=== PATIENT | male | born 1995 | race Caucasian/White ===

== ENCOUNTER → 2020-09-16 12:04 | Outpatient (BNVA) | payer OTHER, SELFPAY | PROVIDERS: Visit Provider Nurse Practitioner Family | DX: Z20.828 Contact with and (suspected) exposure to other viral communicable diseases (principal) | CPT/HCPCS: 87635 ==

== ENCOUNTER 2023-05-20 13:21 | Emergency (ER) | payer OTHER, SELFPAY ==
[2023-05-20 13:34] VITALS: BP 132/89; PULSE 97; RESP 16; TEMP 36.7; O2SAT 99; BMI 23.3
--- NOTE | 2023-05-20 14:10 | W.ED.DENTAL ---
HPI - Dental/Oral General: Chief complaint: Dental/Oral Stated complaint: mouth and head pain Time Seen by Provider: 05/20/23 13:37 History of Present Illness: Almas is a 27-year-old male that presents with dental pain. Patient has a 10-year history of poor dentition. Does not see a dentist. He has developed multiple fractured teeth due to decay, multiple dental caries, and has 2 abscess in the upper anterior teeth. Patient also has discoloration and malodorous breath Patient is a type I diabetic?does not take insulin He also has a history of anxiety and depression and does not take anything for that. Patient denies any suicidal or homicidal thoughts Associated symptoms: Denies ear or mastoid pain, fever(s) or odynophagia Review of Systems General: Reports: 10 or more systems reviewed and unremarkable except in HPI and below Const: Denies: fever(s), chills, change in appetite, change in weight, fatigue or malaise Eyes: Denies: change in vision, eye discomfort, eye discharge or eye redness ENMT: Denies: throat pain, enlarged tonsils, odynophagia, hoarseness, ear or mastoid pain, ear discharge, change in hearing, tinnitus, nasal discharge, nasal congestion, post nasal drip or sinus pain Card: Denies: chest pain, palpitations, irregular heart rhythm, edema, dyspnea on exertion, orthopnea or leg pain with exertion Resp: Denies: dyspnea, productive cough, non-productive cough, wheezing, stridor or chest congestion GI: Denies: abdominal pain, nausea, vomiting, dysphagia, diarrhea, constipation, bloating, GI cramping or hematochezia : Denies: flank pain, dysuria, urinary frequency, urinary urgency, urinary hesitancy, oliguria or hematuria Musc: Denies: neck pain, back pain, extremity pain, joint pain, joint swelling, joint redness, joint warmth or muscle weakness Skin/Breast: Denies: rash, pruritus, erythema, photosensitivity or new lesions Neuro: Denies: headache(s), numbness in extremities, weakness in extremities, sensory changes, lack of coordination, difficulty walking, frequent falls, dizziness, confusion, Slurred speech present, difficulty communicating thoughts, seizure-like activity or involuntary movements Endo: Denies: polyuria, polydipsia or tired all the time Humberto/Lymph: Denies: easy bruising or easy bleeding [facility] ED PFS: Medical History (Updated 05/20/23 @ 14:15 by ALINA Jiménez) Diabetes type 1, controlled Physical Exam Const: COMMON NORMALS: no acute distress, patient oriented x3 and alert GENERAL APPEARANCE: cooperative ORIENTATION/CONSCIOUSNESS: Yes awake, Yes oriented to person, Yes oriented to place and Yes oriented to time HENMT: COMMON NORMALS: normocephalic and atraumatic HEAD & SCALP: normocephalic and atraumatic FACE & SINUS: normal facial exam MOUTH: Normal oral and palatal mucosa present THROAT: posterior oropharynx normal Eye: COMMON NORMALS: Equal, round and reactive pupils present, EOMs intact bilaterally, conjunctivae normal and no scleral icterus GENERAL EYE: appearance normal, both eyes and all related structures ALIGNMENT: Yes alignment normal PERIORBITAL: periorbital findings normal CONJUNCTIVA: Yes conjunctivae normal PUPIL: Yes Equal, round and reactive pupils present Neck/C-Spine: COMMON NORMALS: full ROM GENERAL: Yes normal visual inspection Lymph: LYMPHATIC: no lymphadenopathy noted Chest: COMMONS NORMALS: normal inspection of the chest Breast/axilla inspection: Yes no chest deformity, asymmetry, normal contours, no nodules, masses, tenderness Resp: COMMON NORMALS: normal respiratory effort, No retractions and No use of accessory muscles EFFORT & INSPECTION: Yes able to speak in complete sentences and Yes symmetric chest movement Cardio: COMMON NORMALS: regular rate and Peripheral pulses 2+ throughout RATE: regular rate PERIPHERAL PULSES: Peripheral pulses 2+ throughout GI: COMMON NORMALS: Normal to inspection, nondistended, normoactive bowel sounds present, Soft to palpation and non-tender INSPECTION: Yes normal to inspection PALPATION: Yes Soft to palpation RECTAL EXAM: Yes deferred Extremity: COMMON NORMALS: normal to inspection GENERAL: Yes normal exam except as noted Neuro: COMMON NORMALS: patient oriented x3 SENSORIUM/ORIENTATION: Yes alert, Yes oriented to person, Yes oriented to place and Yes oriented to time CRANIAL NERVES: Yes CN normal except as noted Psych: COMMON NORMALS: mental status grossly normal, Normal thought process present, cooperative, activity/motor behavior normal, denies homicidal ideation and denies suicidal ideation THOUGHT PROCESS: Normal thought process present Skin: COMMON NORMALS: no rashes or lesions noted, no wounds and turgor normal GENERAL SKIN EXAM: no rashes or lesions noted and turgor normal Course Vital Signs: Vital signs: Vital Signs Temperature 98.0 F 05/20/23 13:34 Pulse Rate 97 05/20/23 13:34 Respiratory Rate 16 05/20/23 13:34 Blood Pressure 132/89 05/20/23 13:34 Pulse Oximetry 99 05/20/23 13:34 Oxygen Delivery Me thod Room Air 05/20/23 13:34 MDM - Dental/Oral Medical Decision Making Patient was evaluated in the emergency department due to dental pain. Differential diagnosis includes dental fractures, dental caries, dental abscess Patient does have evidence of 2 abscess located in the upper anterior mouth. Multiple fractured teeth, different stages of decay throughout the mouth Patient also has evidence of necrotizing gingival stomatitis Patient was treated here in the emergency department with Augmentin and discharged home on a prescription Subsequent to me going home with chlorhexidine mouthwash Patient does not have primary care nor dental care services established. Can have case management assist with setting patient up with primary care and endocrinology as well as dental services No radiology studies performed this visit Discharge Plan Discharge Patient Disposition: Home Clinical Impression: Dental caries, Gingival abscess, Dental abscess, Fracture of tooth Condition: Stable Prescriptions: New amoxicillin-pot clavulanate 875-125 mg tablet 1 tab PO Q12H 10 Days Qty: 20 0RF chlorhexidine gluconate [Peridex] 0.12 % mouthwash 15 ml buccal BID Qty: 118 0RF No Action sulfamethoxazole-trimethoprim [Bactrim DS] 800-160 mg tablet 1 tab PO BID 10 Days Qty: 20 0RF Discharge Orders: Discharge ED (Routine); Ordered 05/20/23 Ordered By: Radha Hernandez Discharge Diet: Advance as tolerated Discharge Activity: Resume usual activity Patient Instructions: Dental Caries (Cavities), Dental Abscess (ED), Pain Management Coding Level of Care Code ED Personal Caregiver for Neville Olguin
[2023-05-20] MEDS: amoxicillin-clav 875-125 mg Tablet 1 TAB PO (14:33)
[2023-05-20 14:36] VITALS: PULSE 98; RESP 16; O2SAT 99
--- NOTE | 2023-05-21 08:31 | PC.SOCIAL ---
Endocrinology Referral Referral message sent to clinic at this time. Clinic to contact patient with appt date/time. Called patient and he would like PCP referral somewhere close to [place]. Spoke with Justina at [facility]; they are able to set patient up with KYLE Delarosa as early as tomorrow. She will contact patient to arrange appt.
== END 2023-05-20 14:37 | disposition home or self-care (01) ==
PROVIDERS: Emergency Provider Nurse Practitioner
DX: K02.9 Dental caries, unspecified (principal); K05.20 Aggressive periodontitis, unspecified; K04.7 Periapical abscess without sinus; M84.48XA Pathological fracture, other site, initial encounter for fracture; E10.9 Type 1 diabetes mellitus without complications
CPT/HCPCS: 99283

== ENCOUNTER → 2023-05-22 13:34 | Outpatient (BNVA) | payer OTHER, SELFPAY | PROVIDERS: PCP Nurse Practitioner; Visit Provider Nurse Practitioner | DX: E10.9 Type 1 diabetes mellitus without complications (principal) | CPT/HCPCS: 80053; 80061; 83036; 84443; 85025 ==

== ENCOUNTER 2023-10-14 03:30 | Emergency (ER) | payer SELFPAY ==
[2023-10-14 03:34] VITALS: BP 147/117; PULSE 115; RESP 17; TEMP 36.8; O2SAT 97; BMI 21.6
[2023-10-14] MEDS: dexamethasone 10 mg/mL INJ 6 MG PO (04:02)
[2023-10-14] MEDS: cephALEXin 500 mg Capsule 1000 MG PO (04:02)
[2023-10-14 04:14] VITALS: BP 145/89; PULSE 110; RESP 16; O2SAT 100
--- NOTE | 2023-10-14 04:57 | W.ED.DENTAL ---
HPI - Dental/Oral General: Chief complaint: Dental/Oral Stated complaint: Swollen face Time Seen by Provider: 10/14/23 03:33 History of Present Illness: 28-year-old male with a history of very poor dentition. He is also an untreated diabetic. He presents with swelling to the right infraorbital area. He noticed the swelling about an hour prior to arrival this morning. He is having mild pain in the area. He has had these problems before related to dental abscesses. Associated symptoms: Denies fever(s) Review of Systems Const: Denies: fever(s) or chills ENMT: Denies: throat pain Card: Denies: chest pain Resp: Denies: dyspnea GI: Denies: vomiting Musc: Denies: neck pain or back pain Skin/Breast: Reports: skin swelling [facility] ED PFSH: Medical History Diabetes type 1, controlled Family History Mother Diabetes Father Diabetes Type 2 Hypertension Denies family history of Clotting disorder Chronic kidney disease (CKD) Bleeding disorder Cancer Thyroid disease Stroke Social History Smoking and tobacco/nicotine status: current every day tobacco/nicotine user pipe Substance/Drug Use: former Date of last use: 2020 Household members: family Physical Exam Const: COMMON NORMALS: no acute distress GENERAL APPEARANCE: cooperative; not ill appearing HENMT: COMMON NORMALS: normocephalic, atraumatic and external ears normal HEAD & SCALP: normocephalic and atraumatic FACE & SINUS: sinus tenderness, erythema and edema (Right infraorbital) NOSE: Normal nares present EXTERNAL EAR: Yes external ears normal MOUTH: Normal oral and palatal mucosa present and tongue normal TEETH & GINGIVA: Yes abnormal tooth and associated gingiva (Right maxillary gingival abscess) and Yes poor dentition Eye: COMMON NORMALS: Equal, round and reactive pupils present and EOMs intact bilaterally PUPIL: Yes Equal, round and reactive pupils present Chest: CHEST: Yes Symmetrical chest wall rise Resp: COMMON NORMALS: normal respiratory effort, No use of accessory muscles and clear to auscultation bilaterally AUSCULTATION: clear to auscultation bilaterally Cardio: COMMON NORMALS: regular rhythm RHYTHM: regular rhythm Course Vital Signs: Vital signs: Vital Signs Temperature 98.2 F 10/14/23 03:34 Pulse Rate 110 H 10/14/23 04:14 Respiratory Rate 16 10/14/23 04:14 Blood Pressure 145/89 10/14/23 04:14 Pulse Oximetry 100 10/14/23 04:14 Oxygen Delivery Me thod Room Air 10/14/23 03:34 MDM - Dental/Oral Medical Decision Making Infraorbital swelling on the right. Gingival abscess present. 1 small dose of steroid. We will not continue given history of untreated diabetes. Antibiotics. Close outpatient follow-up with a dentist. Return for worsening symptoms despite treatment. No radiology studies performed this visit Discharge Plan Discharge Patient Disposition: Home Clinical Impression: Gingival abscess Condition: Stable Prescriptions: New cephalexin 500 mg capsule 500 mg PO Q6H 10 Days Qty: 40 0RF No Action (DME) Accu-Chek Guide test strips Strip See Rx Instructions .Route Qty: 100 0RF Rx Instructions: As directed (DME) lancets [Accu-Chek Softclix Lancets] Misc See Rx Instructions .Route Qty: 100 0RF Rx Instructions: As directed (DME) blood-glucose meter [Blood Glucose Monitoring] Kit See Rx Instructions .Route Qty: 1 0RF Rx Instructions: As directed hydroxyzine HCl 10 mg tablet 10 mg PO TID PRN (Reason: anxiety) Qty: 30 0RF Peridex 0.12 % mouthwash 15 ml buccal BID Qty: 118 0RF Discharge Orders: Discharge ED (Routine); Ordered 10/14/23 Ordered By: Joe Grider Referrals: Miriam Oro FNP [Primary Care Provider] - Patient Instructions: Dental Abscess (ED), Opioid Safety, Pain Management Activity Restrictions/Additional Instructions: Return for worsening swelling despite treatment, fever despite 3-4 doses of antibiotics, other concerning symptoms. See a dentist this coming week. Medication as directed. Coding Level of Care Code ED Order Dispatcher for Neville Olguin
== END 2023-10-14 04:12 | disposition home or self-care (01) ==
PROVIDERS: Emergency Provider Emergency Medicine; PCP Nurse Practitioner
DX: K05.20 Aggressive periodontitis, unspecified (principal); F17.290 Nicotine dependence, other tobacco product, uncomplicated; E10.9 Type 1 diabetes mellitus without complications
CPT/HCPCS: 99283; J1100

== ENCOUNTER 2023-10-15 13:08 | Emergency (ER) | payer SELFPAY ==
[2023-10-15 13:17] VITALS: BP 156/115; PULSE 117; RESP 16; TEMP 36.9; O2SAT 97; BMI 21.2
--- NOTE | 2023-10-15 13:30 | ED_ITS ---
HPI - Dental/Oral 2 General: Chief complaint: Dental/Oral Stated complaint: right side face swelling and pain Time Seen by Provider: 10/15/23 13:18 Source: patient Mode of arrival: ambulatory Limitations: no limitations History of Present Illness: Patient is a 28-year-old male who presents to ED today with a complaint of swelling to the right side of his face as well as dental pain. Patient states symptoms started approximately 2 days ago. He was seen here in our emergency department and placed on Keflex. He states he has had a total of 3 doses of this medication. He feels like swelling got a little bit better yesterday but woke up this morning and felt like it was a little bit worse thus prompting his ED evaluation. He is not running fevers. He is eating and drinking normally. He has no complaints of a headache or neurologic deficits. MD Complaint: tooth pain Teeth map: 1. every tooth in his mouth has significant dental decay Onset (ago): day(s) Duration: constant Severity: moderate Relieving factors: nothing Exacerbating factors: nothing Context: history of dental caries and poor dental care Associated symptoms: Denies ear or mastoid pain, fever(s) or odynophagia Treatment prior to arrival: other (antibiotics ) Review of Systems 2 Const: Denies: fever(s), chills, body aches, fatigue or malaise ENMT: Reports: dental pain; Denies: throat pain, odynophagia, hoarseness, swelling of lips/tongue, ear or mastoid pain, ear discharge, change in hearing, disequilibrium, nasal discharge, nasal congestion or sinus pain Card: Denies: chest pain Resp: Denies: dyspnea GI: Denies: abdominal pain, nausea, vomiting or diarrhea Musc: Denies: neck pain, back pain, extremity pain or joint pain Skin/Breast: Denies: rash Neuro: Denies: headache(s) or dizziness PFS ED 2 PFSH: Medical History Diabetes type 1, controlled Family History Mother Diabetes Father Diabetes Type 2 Hypertension Denies family history of Clotting disorder Chronic kidney disease (CKD) Bleeding disorder Cancer Thyroid disease Stroke Social History Smoking and tobacco/nicotine status: current every day tobacco/nicotine user pipe Substance/Drug Use: former Date of last use: 2020 Household members: family Physical Exam 2 Const: COMMON NORMALS: no acute distress, patient oriented x3, no limitations, alert and well nourished ORIENTATION/CONSCIOUSNESS: Yes awake, Yes oriented to person, Yes oriented to place and Yes oriented to time HENMT: COMMON NORMALS: Normal external nose present FACE & SINUS: face symmetric FACE & SINUS IMAGES: 1. mild swelling NOSE: Normal external nose present TEETH & GINGIVA: Yes caries and Yes other (significant widespread dental decay) Neck/C-Spine: COMMON NORMALS: no lymphadenopathy GENERAL: No anterior neck swelling and No submandibular swelling Resp: COMMON NORMALS: normal respiratory effort and clear to auscultation bilaterally AUSCULTATION: clear to auscultation bilaterally Cardio: COMMON NORMALS: regular rhythm RATE: tachycardic RHYTHM: regular rhythm Extremity: GENERAL: Yes normal exam except as noted Neuro: NED COMA SCALE: document GCS findings Independence coma scale eye opening: Spontaneous Independence coma scale verbal response: Orientated Independence coma scale motor response: Obey commands Ned coma scale total score: 15 COMMON NORMALS: patient oriented x3 and CN's II-XII intact bilaterally S ENSORIUM/ORIENTATION: Yes alert, Yes oriented to person, Yes oriented to place and Yes oriented to time Course 2 Vital Signs: Vital signs: Vital Signs Temperature 98.5 F 10/15/23 13:17 Pulse Rate 117 H 10/15/23 13:17 Respiratory Rate 16 10/15/23 13:17 Blood Pressure 156/115 10/15/23 13:17 Pulse Oximetry 97 10/15/23 13:17 Oxygen Delivery Me thod Room Air 10/15/23 13:17 MDM - Dental/Oral Medical Decision Making Patient here for complaints of a dental infection. He was seen here 2 days ago. He states yesterday he felt like he was improving yesterday but today feels like he is back to when he was initially seen here in the ED. He has had 3 doses of his Keflex. At this time patient has been on antibiotic therapy less than 24 hours. Recommend he continue his current antibiotics. He was given IM penicillin G and Flagyl here for oral coverage. Recommend prompt follow-up with a dentist. There does not appear to be anything drainable on today's visit. No radiology studies performed this visit Discharge Plan Discharge Patient Disposition: Home Clinical Impression: Toothache, Dental caries, Dental abscess Condition: Stable Prescriptions: No Action (DME) Accu-Chek Guide test strips Strip See Rx Instructions .Route Qty: 100 0RF Rx Instructions: As directed (DME) lancets [Accu-Chek Softclix Lancets] Misc See Rx Instructions .Route Qty: 100 0RF Rx Instructions: As directed (DME) blood-glucose meter [Blood Glucose Monitoring] Kit See Rx Instructions .Route Qty: 1 0RF Rx Instructions: As directed hydroxyzine HCl 10 mg tablet 10 mg PO TID PRN (Reason: anxiety) Qty: 30 0RF Peridex 0.12 % mouthwash 15 ml buccal BID Qty: 118 0RF cephalexin 500 mg capsule 500 mg PO Q6H 10 Days Qty: 40 0RF Discharge Orders: Discharge ED (Routine); Ordered 10/15/23 Ordered By: Johanna Salmeron Referrals: Miriam Oro FNP [Primary Care Provider] - Patient Instructions: Dental Caries (Cavities), Toothache (ED), Dental Abscess Activity Restrictions/Additional Instructions: As we discussed you need to follow-up with a dentist to soon as possible. We discussed potential options and clinics regarding this. You need to return to the emergency department for worsening visual pain, swelling, redness, fevers, severe headache, facial paralysis, or any other concerns you may have. You were given IM antibiotics today. Please continue your current prescription. You also need to speak to a primary care in regards to your diabetes diagnosis so you can start medications if indicated and get prescriptions for diabetic testing supplies. Coding Level of Care Code ED Actuarial Trainee for Neville Olguin
[2023-10-15] MEDS: metroNIDAZOLE 500 MG Tablet PO (13:50)
[2023-10-15] MEDS: penicillin g (L-A) 1,200,000 unit/2 mL Syr 1200000 UNIT IM (13:50)
== END 2023-10-15 13:58 | disposition home or self-care (01) ==
PROVIDERS: Emergency Provider Physician Assistant; PCP Nurse Practitioner
DX: K02.9 Dental caries, unspecified (principal); K04.7 Periapical abscess without sinus; F17.290 Nicotine dependence, other tobacco product, uncomplicated; E10.9 Type 1 diabetes mellitus without complications
CPT/HCPCS: 96372; 99284; J0561

== ENCOUNTER 2025-08-17 13:04 | Inpatient (IN) | payer MEDICAID, SELFPAY ==
[2025-08-17 13:06] VITALS: BP 101/66; PULSE 90; RESP 16; TEMP 36.5; O2SAT 98; BMI 21.4
--- NOTE | 2025-08-17 13:20 | W.ED.PSYCHS ---
HPI - Psych General: Chief Complaint: Psychiatric Symptoms Stated Complaint: SI Time Seen by Provider: 08/17/25 13:05 Source: patient Limitations: no limitations History of Present Illness: 21-year-old male states he does have a history of psychiatric issues depression the past states he supposed be on meds but is not currently on any meds and does not have a psychiatrist currently. States he been having increasing suicidal thoughts over the last month. Denies any specific plan. He denies any worse improved factors Associated symptoms: Reports suicidal ideation Related Data Home Medications ?Medication ?Instructions ?Recorded ?Confirmed aripiprazole 5 mg tablet 5 mg PO QAM 08/17/25 08/17/25 atomoxetine 25 mg capsule 25 mg PO QAM 08/17/25 08/17/25 buspirone 10 mg tablet 10 mg PO BID 08/17/25 08/17/25 glucagon 3 mg/actuation nasal See Rx Instructions .Route .COMPLEX 08/17/25 08/17/25 spray (Baqsimi) insulin glargine 100 unit/mL (3 See Rx Instructions .Route .COMPLEX 08/17/25 08/17/25 mL) subcutaneous pen (Lantus Solostar U-100 Insulin) insulin lispro 100 unit/mL See Rx Instructions .Route .COMPLEX 08/17/25 08/17/25 subcutaneous pen mirtazapine 15 mg tablet 15 mg PO BEDTIME 08/17/25 08/17/25 Previous Rx's ?Medication ?Instructions ?Recorded blood sugar diagnostic (Accu-Chek #100 ea 05/22/23 Guide test strips) blood-glucose meter (Blood Glucose #1 ea 05/22/23 Monitoring kit) lancets (Accu-Chek Softclix #100 ea 05/22/23 Lancets) Allergies Allergy/AdvReac Type Severity Reaction Status Date / Time mushroom Allergy ALGY-Anaphy Verified 10/15/23 13:14 laxis Review of Systems Psych: Reports: suicidal ideation PFSH ED PFSH: Medical History Diabetes type 1, controlled Family History Mother Diabetes Father Diabetes Type 2 Hypertension Denies family history of Clotting disorder Chronic kidney disease (CKD) Bleeding disorder Cancer Thyroid disease Stroke Social History Smoking and tobacco/nicotine status: current every day tobacco/nicotine user pipe Substance/Drug Use: former Date of last use: 2020 Household members: family Physical Exam Const: COMMON NORMALS: no acute distress, patient oriented x3 and healthy appearing HENMT: COMMON NORMALS: normocephalic and atraumatic HEAD & SCALP: normocephalic and atraumatic Eye: COMMON NORMALS: conjunctivae normal CONJUNCTIVA: Yes conjunctivae normal Neck/C-Spine: COMMON NORMALS: full ROM and supple Chest: COMMONS NORMALS: normal inspection of the chest Resp: COMMON NORMALS: normal respiratory effort Cardio: COMMON NORMALS: regular rate, regular rhythm and No murmurs present (Cardio) RATE: regular rate RHYTHM: regular rhythm Extremity: COMMON NORMALS: normal to inspection and full ROM Neuro: COMMON NORMALS: patient oriented x3, moves all extremities and no focal motor deficits Psych: COMMON NORMALS: mental status grossly normal, Normal thought process present and cooperative MOOD & AFFECT: Yes depressed mood THOUGHT PROCESS: Normal thought process present THOUGHT CONTENT: Yes Suicidality present Skin: COMMON NORMALS: no rashes or lesions noted and no wounds GENERAL SKIN EXAM: no rashes or lesions noted Course Vital Signs: Vital signs: Vital Signs Temperature 97.7 F 08/17/25 13:06 Pulse Rate 90 08/17/25 13:06 Respiratory Rate 16 08/17/25 13:06 Blood Pressure 101/66 08/17/25 13:06 Pulse Oximetry 98 08/17/25 13:06 Oxygen Delivery Me thod Room Air 08/17/25 13:06 [facility] - Psych Medical Decision Making Patient presents here with suicidal ideations he is placed on a 96-hour hold is a type I diabetic blood sugar was originally in the 470s labs showed no signs of DKA Sugar here is improved to 200s I did speak to psychiatrist Dr. Kimball will admit to the psych jennings did speak to hospitalist Dr. Gipson who is consulted on case for diabetes management. Medical Records I reviewed the patient's medical records. Lab Data I reviewed the patient's lab results. 08/17/25 13:30 08/17/25 13:30 Laboratory Results WBC 8.15 10^3/uL (3.29-11.43) 08/17/25 13:30 RBC 4.85 10^6/uL (3.85-5.65) 08/17/25 13:30 Hgb 14.70 g/dL (11.27-16.99) 08/17/25 13:30 Hct 41.5 % (37-53) 08/17/25 13:30 MCV 85.6 fl (82-101) 08/17/25 13:30 MCH 30.3 pg (27-33) 08/17/25 13:30 MCHC 35.4 g/dL (30-55) 08/17/25 13:30 RDW 11.8 % (12.1-15.1) L 08/17/25 13:30 Plt Count 236 10^3/cmm (157-399) 08/17/25 13:30 MPV 9.8 fL (7.4-10.4) 08/17/25 13:30 Neut % (Auto) 78.7 % 08/17/25 13:30 Lymph % (Auto) 15.6 % 08/17/25 13:30 [place] % (Auto) 4.3 % 08/17/25 13:30 Eos % (Auto) 1.0 % 08/17/25 13:30 Baso % (Auto) 0.2 % 08/17/25 13: Neut # (Auto) 6.41 10^3/uL (1.8-7.7) 08/17/25 13:30 Lymph # (Auto) 1.3 10^3/uL (0.8-4.8) 08/17/25 13:30 [place] # (Auto) 0.4 10^3/uL (0.2-0.9) 08/17/25 13:30 Eos # (Auto) 0.1 10^3/uL (0.0-0.8) 08/17/25 13:30 Baso # (Auto) 0.0 10^3/uL (0.0-0.1) 08/17/25 13:30 Nucleated RBC % (auto) 0 % 08/17/25 13: Nucleated RBCs # 0.0 /100WBC 08/17/25 13:30 Specimen Type Arterial 08/17/25 13:50 Sample Site Radial, left 08/17/25 13:50 ABG pH 7.42 (7.35-7.45) 08/17/25 13:50 ABG pCO2 38.7 mmHg (35-45) 08/17/25 13:50 ABG pO2 108.0 mmHg (80.0-100.0) H 08/17/25 13:50 ABG PO2/FiO2 Ratio 514 08/17/25 13:50 ABG HCO3 25.2 mmol/L (22-26) 08/17/25 13:50 ABG Base Excess 0.8 mmol/L (-2.0-2.0) 08/17/25 13:50 Oniel Test Pos 08/17/25 13:50 Hematocrit 47.2 % (42-52) 08/17/25 13:50 O2 Delivery Device Room air 08/17/25 13:50 FiO2 21.0 % 08/17/25 13:50 Clinical Faculty ID Gd 08/17/25 13:50 Sodium 133 mmol/L (136-145) L 08/17/25 13:30 Potassium 4.6 mmol/L (3.5-5.1) 08/17/25 13:30 Chloride 97 mmol/L (98-107) L 08/17/25 13:30 Carbon Dioxide 30 mmol/L (22-29) H 08/17/25 13:30 Anion Gap 10.6 (5-19) 08/17/25 13:30 BUN 12 mg/dL (6-20) 08/17/25 13:30 Creatinine 0.8 mg/dL (0.7-1.2) 08/17/25 13:30 GFR Calculation 115.1 mL/min (90-130) 08/17/25 13:30 Glucose 457 mg/dL (65-115) H 08/17/25 13:30 POC Glucose 249 mg/dL (70-110) H 08/17/25 14:35 Calculated Osmolality 296 mOsm/kg (285-295) H 08/17/25 13:30 Calcium 9.2 mg/dL (8.5-10.5) 08/17/25 13:30 Total Bilirubin 1.0 mg/dL (0.15-1.2) 08/17/25 13:30 AST 11 U/L (0-40) 08/17/25 13:30 ALT 14 U/L (0-41) 08/17/25 13:30 Alkaline Phosphatase 131 U/L (40-130) H 08/17/25 13:30 Total Protein 6.4 g/dL (6.6-8.7) L 08/17/25 13:30 Albumin 4.0 g/dL (3.5-5.2) 08/17/25 13:30 Globulin 2.4 g/dL (1.3-4.6) 08/17/25 13:30 Salicylates < 0.3 mg/dL (3-10) L 08/17/25 13:30 Urine Opiates Screen Negative ng/mL (Negative) 08/17/25 13:26 Acetaminophen < 5.0 ug/mL (10-30) L 08/17/25 13:30 Ur Barbiturates Screen Negative ng/mL (Negative) 08/17/25 13:26 Ur Phencyclidine Scrn Negative ng/mL (Negative) 08/17/25 13:26 Ur Amphetamines Screen Negative ng/mL (Negative) 08/17/25 13:26 U Benzodiazepines Scrn Negative ng/mL (Negative) 08/17/25 13:26 Urine Cocaine Screen Negative ng/mL (Negative) 08/17/25 13:26 U Marijuana (THC) Screen Negative ng/mL (Negative) 08/17/25 13:26 Ethyl Alcohol < 10 mg/dL (0-10) 08/17/25 13:30 No radiology studies performed this visit Discharge Plan Discharge Patient Disposition: Admitted As Inpatient Clinical Impression: Suicidal ideation, Diabetes type 1, controlled Condition: Stable Coding Level of Care Code ED [employer] for Neville Olguin
[2025-08-17 13:34] LABS: Hematocrit 41.5 % (37-53); Hemoglobin 14.70 g/dL (11.27-16.99); Mean Corpuscular HGB Conc 35.4 g/dL (30-55); Mean Corpuscular Hemoglobin 30.3 pg (27-33); Mean Corpuscular Volume 85.6 fl (82-101); Nucleated Red Blood Cells % 0 %; Platelet Count 236 10^3/cmm (157-399); Red Blood Count 4.85 10^6/uL (3.85-5.65); White Blood Count 8.15 10^3/uL (3.29-11.43)
--- NOTE | 2025-08-17 13:40 | PC.NURSE ---
read pt 96 HH rights with [employer], security. pt verbalized understanding of rights. copy given to pt. no further questions or concerns at this time. pt calm and cooperative.
[2025-08-17 13:59] LABS: PCP Screen Urine Negative (Negative)
[2025-08-17 14:01] LABS: Alanine Aminotransferase 14 U/L (0-41); Albumin Level 4.0 g/dL (3.5-5.2); Alkaline Phosphatase 131 U/L (40-130); Anion Gap 10.6 (5-19); Aspartate Amino Transferase 11 U/L (0-40); Blood Urea Nitrogen 12 mg/dL (6-20); Calcium 9.2 mg/dL (8.5-10.5); Carbon Dioxide 30 mmol/L (22-29); Chloride 97 mmol/L (98-107); Globulin 2.4 g/dL (1.3-4.6); Glucose 457 mg/dL (65-115); Osmolality Calculated 296 mOsm/kg (285-295); Potassium 4.6 mmol/L (3.5-5.1); Salicylate < 0.3 mg/dL (3-10); Sodium 133 mmol/L (136-145); Total Protein 6.4 g/dL (6.6-8.7)
[2025-08-17 14:02] LABS: Acetaminophen < 5.0 ug/mL (10-30); Alcohol Level < 10 mg/dL (0-10)
[2025-08-17] MEDS: insulin regular-human 100 units/1 mL 10 UNIT IVP (14:03)
[2025-08-17 14:07] LABS: ABG PCO2 38.7 mmHg (35-45); ABG PH Result 7.42 (7.35-7.45); Arterial Blood Gas Hematocrit 47.2 % (42-52); Blood Gas Allen Test Pos; Blood Gas Operator Identificat GD; Blood Gas Sample Site Radial, left; Blood Gas Sample Type Arterial; HCO3 ABG 25.2 mmol/L (22-26); PO2 ABG 108.0 mmHg (80.0-100.0); PO2 FiO2 Ratio Arterial Blood 514
--- NOTE | 2025-08-17 14:28 | PC.PHAR ---
Pt states he has not taken any of his medications in a long time. Added the meds he should be on, from external med list with last fill date and day supply, in pharmacy notes.
--- NOTE | 2025-08-17 16:41 | PM.CONSULT ---
Providers/Reason For Consult Consulting Physician/Specialty*: Hospitalist Reason for Consult*: Medical management Attending Physician: Ghanshyam Curtis MD History of Present Illness History of Present Illness Almas Nagel is a 29 year old male w/ pmhx of DM1, anxiety, and depression patient presented to the ED today via POV w/ c/o suicidal ideation. Patient to receive further psychiatric assessment and management with Dr. Curtis. Hospitalist services was consulted for medical management of type 1 diabetes. Review of Systems General: Reports: 10 or more systems reviewed and unremarkable except in HPI and below Medications/Allergies Home Medications ?Medication ?Instructions ?Recorded ?Confirmed ?Last Taken ?Type blood sugar diagnostic (Accu-Chek #100 ea 05/22/23 08/17/25 Unknown Rx Guide test strips) blood-glucose meter (Blood Glucose #1 ea 05/22/23 08/17/25 Unknown Rx Monitoring kit) lancets (Accu-Chek Softclix #100 ea 05/22/23 08/17/25 Unknown Rx Lancets) aripiprazole 5 mg tablet 5 mg PO QAM 08/17/25 08/17/25 Unknown History atomoxetine 25 mg capsule 25 mg PO QAM 08/17/25 08/17/25 Unknown History buspirone 10 mg tablet 10 mg PO BID 08/17/25 08/17/25 Unknown History glucagon 3 mg/actuation nasal See Rx Instructions .Route .COMPLEX 08/17/25 08/17/25 Unknown History spray (Baqsimi) insulin glargine 100 unit/mL (3 See Rx Instructions .Route .COMPLEX 08/17/25 08/17/25 Unknown History mL) subcutaneous pen (Lantus Solostar U-100 Insulin) insulin lispro 100 unit/mL See Rx Instructions .Route .COMPLEX 08/17/25 08/17/25 Unknown History subcutaneous pen mirtazapine 15 mg tablet 15 mg PO BEDTIME 08/17/25 08/17/25 Unknown History Allergies Allergy/AdvReac Type Severity Reaction Status Date / Time mushroom Allergy ALGY-Anaphy Verified 10/15/23 13:14 laxis PFSH Acute PFSH: Medical History (Updated 08/17/25 @ 14:45 by Keanu Ambrocio MD) Diabetes type 1, controlled Family History Mother Diabetes Father Diabetes Type 2 Hypertension Denies family history of Clotting disorder Chronic kidney disease (CKD) Bleeding disorder Cancer Thyroid disease Stroke Social History Smoking and tobacco/nicotine status: current every day tobacco/nicotine user pipe Substance/Drug Use: former Date of last use: 2020 Household members: family Vitals/I&O/Wt Last Vital Signs Temp 97.7 F 08/17/25 13:06 Pulse 90 08/17/25 13:06 Resp 16 08/17/25 13:06 BP 101/66 08/17/25 13:06 Pulse Ox 98 08/17/25 13:06 O2 Del Method Room Air 08/17/25 13:06 08/17/25 08/17/25 08/17/25 06:59 14:59 22:59 Intake Total 1999 Balance 1999 Weight last 48 hrs Weight 62.142 kg Physical Exam Narrative: General: A&Ox4, sitting up in chair, drowsy. No apparent distress. Cardio: NSR, normal S1-S2 w/o any murmurs, rubs, or gallops and JVD normal Respiratory: Clear breathing on auscultation GI: Abd soft, non-tender, non-distended, normo-active bowel sounds present Neuro: Moves all extremities, no sensory deficits, Normal speech Behavior: Appropriate and cooperative Extremities: Adequate palpable pulses. No clubbing, cyanosis or edema, Full ROM Data 08/17/25 13:30 08/17/25 13:30 A&P Assessment and plan 1. Suicidal ideation: 2. Diabetes type 1, controlled: Plan: DM1 ? A1c ordered, pending. ? Blood glucose monitoring, ACHS ? Insulin lispro 12 units SC AC ? Continue home Lantus SC ? Hypoglycemic protocol ? Carb consistent diet CODE STATUS: Full code PDMP PDMP Reviewed: Not Reviewed Consult Attestations Medical Necessity Statement: Continue psychiatric assessment and management and medical management of DM1. Coding Level of Care Code Acute Code for Chg Fwd Diagnoses Suicidal ideation R45.851 Diabetes type 1, controlled E10.9
[2025-08-17 16:45] VITALS: BP 102/66; PULSE 96; RESP 16; TEMP 36.7; O2SAT 100
[2025-08-17 16:46] VITALS: BP 102/66; PULSE 96; RESP 16; TEMP 36.7; O2SAT 100
[2025-08-17 19:39] VITALS: BP 131/84; PULSE 88; RESP 18; TEMP 36.6; O2SAT 99
[2025-08-17 19:56] LABS: Estmated Average Glucose 266; Hemoglobin A1C 10.9 % (4.0-6.0)
[2025-08-17] MEDS: insulin glargine 100 units/1 mL 32 UNIT SUBCUT (20:13)
--- NOTE | 2025-08-18 06:13 | PC.NURSE ---
vitals vitals not collected pt resting in bed with both eyes closed resp 16 nurse notified
[2025-08-18] MEDS: insulin glargine 100 units/1 mL 32 UNIT SUBCUT (07:56)
--- NOTE | 2025-08-18 09:39 | PC.OT ---
OT EVALUATION ATTEMPTED TWICE THIS A.M.; PATIENT SLEEPING SOUNDLY AND DOES NOT AWAKEN
--- NOTE | 2025-08-18 11:58 | P.MISC_ITS ---
Miscellaneous Note Purpose of Documentation: Consult follow-up for diabetes management Note: - Blood glucose readings reviewed and th e patient had hypoglycemia reading of 55 and later 71. As per the assigned nurse the patient was given juice and some snacks which improved his blood glucose levels. Plan and assessment: Due to concerns of patient hypoglycemia, to reduce the dose of Lantus to 20 mg daily and lispro to 5 mg after meals Continue monitoring blood glucose level and the device to be adjusted accordingly in 24 hours. Sliding scale added for correction To adjust further readings based on 24 hours Maintain normoglycemia and proceed with hypoglycemia protocol
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
[2025-08-18 14:00] VITALS: BP 100/66; PULSE 94; RESP 16; TEMP 36.9; O2SAT 99
[2025-08-18 19:56] VITALS: BP 102/62; PULSE 94; RESP 16; TEMP 36.9; O2SAT 100
--- NOTE | 2025-08-18 22:01 | PC.NURSE ---
blood sugars Report from off going day shift, reported that patient has been having low blood sugars through they're shift. AT 1938, blood sugar was checked, obtained reading of 75. during the 2014 rounding, patient noted to be diaphoretic enough he had to change his clothes, blood sugar checked at 2019 with a reading of 50 obtained. A carton of whole milk was given as well as a single serving sized container of peanut butter. At 2049, blood sugar checked with a result of 53 obtained. patient ate 1/2 of a peanut butter cookie followed by 120ml of orange juice with 6 packets of sugar in it. At 2124, blood sugar again checked, with a reading of 57 obtained. Patient was given 1 1/2 peanut butter cookies and another carton of whole milk. [id number], call was placed to Dr Curtis with report of patients change of condition. Verbal order given to contact hospitalist on duty for further instructions due to patient being followed by said group (hospitalists).At 2139, Dr Mobley notified of patients blood sugar levels thus far this shift, and new orders placed for Glucagon 1mg IM be given for continued low sugar levels. Dr Mobley also lowered patients Lantus order from 20 units SQ daily to 10 units SQ daily. At 2155, blood sugar result of 60. Packet of honey given to patient. At 2229, recheck of patients blood sugar now results of 76 obtained. Will continue to monitor blood sugar levels every 30 minutes to 1 hour until sugar levels are consistently within the normal ranges 0f 70-120.
--- NOTE | 2025-08-19 06:29 | PC.NURSE ---
vs not collected pt laying in bed with both eyes closed resp 16
--- NOTE | 2025-08-19 14:41 | P.NPUPN_ITS ---
Subjective NPU 2 Subjective: 29-year-old male admitted with depressio n and suicidal ideation with type 1 diabetes currently actively using methamphetamine. He continued to lament 2 over potentially going to care home. He had reported depressed mood for an extended period of time and reported low energy and low motivation. He had endorsed some feelings of hopelessness. He had reported that he was willing to go into inpatient rehabilitation. He will continue to remain isolative on the milieu and continue to struggle with managing his blood sugars. He was placed on a sliding scale and reported that he had not taken insulin in several months. He had reported that he had struggled with homelessness. He had reported anhedonia and difficulties with concentration. Mental Status Exam 2 MSE Comments: The patient is a disheveled male with poor hygiene and steady gait who appeared in mild to moderate distress during the interview. There is no evidence of any abnormal involuntary motor movements, tics, or tremors appreciated. His speech was slow but steady with normal prosody and volume. His gait was steady. His mood was described as depressed. His affect was restricted in range and mood congruent. His thought process was linear, logical, and goal-directed. His thought content revealed suicidal ideation with no active plan. There was no clear evidence of delusional thinking. He did not appear to be responding to internal stimuli. He was alert and oriented to person, place, time, and situation. His recent and remote memory appeared grossly intact. His insight is limited. His judgment is fair. His impulse control appeared adequate. Vitals/I&O/Wt Last Vital Signs Temp 98.4 F 08/18/25 19:56 Pulse 94 08/18/25 19:56 Resp 16 08/18/25 19:56 BP 102/62 08/18/25 19:56 Pulse Ox 100 08/18/25 19:56 O2 Del Method Room Air 08/18/25 19:56 Data NPU 08/17/25 13:30 08/17/25 13:30 A&P Assessment and plan 1. Suicidal ideation: 2. MDD (major depressive disorder), recurrent severe, without psychosis: 3. Anxiety disorder, unspecified: 4. Methamphetamine use disorder, severe: Plan: 29-year-old male with a history of depression and anxiety along with a history of polysubstance abuse currently endorsing suicidal ideation and increased stress regarding potential incarceration if he does not enter into a substance abuse treatment program. The patient has been seriously negligent in regards to self-care particularly with his management of his type 1 diabetes. #1.? Engage patient in individual milieu and group therapy. #2?? Recommend sober living treatment at the highest level of care to which the patient is willing to commit #3??? Appreciate Medical consultation regarding management of diabetes type I, patient on sliding scale. ? #4?? TO-15 minute checks? #5?? Will attempt to gather collateral information, patient likely benefit from stabilization and transfer to substance abuse treatment facility inpatient if possible. #6. Start Prozac 20mg daily. PDMP PDMP Reviewed: Not Reviewed Involuntary Hold Information 2 Hold Status: Legal Status: 96 Hour Hold Date/Time Hold Expires: 08/21/25 @ 13:22 Attestations NPU 2 Medical Necessity Statement*: Inpatient hospitalization is medically necessary and deemed to be the clinically appropriate intervention at this time. Medications will be initiated and adjusted accordingly.? The patient?s likely length of stay is 5-7 days.? Coding Level of Care Code Acute Code for Chg Fwd Diagnoses Suicidal ideation R45.851 MDD (major depressive disorder), recurrent severe, without psychosis F33.2 Anxiety disorder, unspecified F41.9 Methamphetamine use disorder, severe F15.20
[2025-08-19 20:40] VITALS: BP 117/63; PULSE 86; RESP 16; TEMP 36.6; O2SAT 96
--- NOTE | 2025-08-19 23:49 | PM.MISC ---
Miscellaneous Note Purpose of Documentation: Consult follow up for DM management Note: patient having blood glucose levels around 90s. cont only insulin S/S at the moment hba1c reviewed further decision based on the 24 hours glucose readings
--- NOTE | 2025-08-20 06:20 | PC.NURSE ---
viatls vs not collected pt iresting in bed with both eyes closed resp 17 nurse notified
--- NOTE | 2025-08-20 13:54 | PM.MISC ---
Miscellaneous Note Purpose of Documentation: post consultation follow up for DM management Note: Assessment/Plan: DM-1 insulin dependent Patient was initially started on insulin scheduled doses however had mild hypoglycemic episodes. After reduction of the scheduled doses still the patient glucose level was in 90s Discontinue the scheduled insulin and continue with insulin sliding scale as inpatient as the patient glucose is in the range of 120s to 180s which is acceptable as inpatient. Patient can be sent outpatient with endocrinology follow-up and his home insulin Sign off In case of further concerns inquiries kindly reconsult and do not hesitate to contact the medical team Thank you for involving in the care of this patient
[2025-08-20 14:00] VITALS: BP 110/69; PULSE 100; RESP 18; TEMP 36.8; O2SAT 96
--- NOTE | 2025-08-20 15:12 | P.NPUPN_ITS ---
Subjective NPU 2 Subjective: 29-year-old male admitted with depressio n and suicidal ideation with type 1 diabetes currently actively using methamphetamine, paulyets as well. The patient had reported that he had been feeling better. He had continued to require adjustments in his blood sugars. He had expressed desire to return home to [place] where his friends resides prior to his admission into an inpatient substance abuse treatment facility. He had reported that he was feeling somewhat better. He had reported no cravings for substances at this time. He continued to struggle with self-care. He had required prompting to complete routine activities of daily living. Mental Status Exam 2 MSE Comments: The patient is a disheveled male with poor hygiene and steady gait who appeared in mild to moderate distress during the interview. There is no evidence of any abnormal involuntary motor movements, tics, or tremors appreciated. His speech was slow but steady with normal prosody and volume. His gait was steady. His mood was described as better. His affect was restricted in range and mood congruent. His thought process was linear, logical, and goal-directed. His thought content revealed suicidal ideation with no active plan. There was no clear evidence of delusional thinking. He did not appear to be responding to internal stimuli. He was alert and oriented to person, place, time, and situation. His recent and remote memory appeared grossly intact. His insight is poor. His judgment is limited. His impulse control appeared adequate. Vitals/I&O/Wt Last Vital Signs Temp 98.3 F 08/20/25 14:00 Pulse 100 08/20/25 14:00 Resp 18 08/20/25 14:00 BP 110/69 08/20/25 14:00 Pulse Ox 96 08/20/25 14:00 O2 Del Method Room Air 08/20/25 14:00 Data NPU 08/17/25 13:30 08/17/25 13:30 A&P Assessment and plan 1. Suicidal ideation: 2. MDD (major depressive disorder), recurrent severe, without psychosis: 3. Anxiety disorder, unspecified: 4. Methamphetamine use disorder, severe: Plan: 29-year-old male with a history of depression and anxiety along with a history of polysubstance abuse currently endorsing suicidal ideation and increased stress regarding potential incarceration if he does not enter into a substance abuse treatment program. The patient has been seriously negligent in regards to self-care particularly with his management of his type 1 diabetes. #1.? Engage patient in individual milieu and group therapy. #2?? Recommend sober living treatment at the highest level of care to which the patient is willing to commit #3??? Appreciate Medical consultation regarding management of diabetes type I, patient on sliding scale. ? #4?? TO-15 minute checks? #5?? Will attempt to gather collateral information, patient likely benefit from stabilization and transfer to substance abuse treatment facility inpatient if possible. Patient accepted to [facility] on 08/24/25. #6. Increase Prozac to 30mg daily. PDMP PDMP Reviewed: Not Reviewed Involuntary Hold Information 2 Hold Status: Legal Status: 96 Hour Hold Date/Time Hold Expires: 08/21/25 @ 13:22 Attestations NPU 2 Medical Necessity Statement*: Inpatient hospitalization is medically necessary and deemed to be the clinically appropriate intervention at this time. Medications will be initiated and adjusted accordingly.? The patient?s likely length of stay is 4-6 days.? Coding Level of Care Code Acute Code for Chg Fwd Diagnoses Suicidal ideation R45.851 MDD (major depressive disorder), recurrent severe, without psychosis F33.2 Anxiety disorder, unspecified F41.9 Methamphetamine use disorder, severe F15.20
[2025-08-20 20:46] VITALS: BP 113/71; PULSE 86; RESP 17; TEMP 36.9; O2SAT 98
[2025-08-21 06:00] VITALS: RESP 12
--- NOTE | 2025-08-21 06:34 | PC.NURSE ---
pt vitals not done, resp 12, pt asleep in bed, nurse aware
[2025-08-21 12:45] VITALS: BP 108/72; PULSE 126; RESP 18; TEMP 36.7; O2SAT 100
--- NOTE | 2025-08-21 14:44 | P.NPUPN_ITS ---
Subjective NPU 2 Subjective: 29-year-old male admitted with depressio n and suicidal ideation with type 1 diabetes currently actively using methamphetamine, and whippets as well. Patient had been less isolative. He had reported some improved motivation. Patient had stated that he was ready to go home today. He had initially stated that he would be wanting to see his family and stated that he would be staying in [facility]. However, the family was contacted and reported that the patient would likely be returning back to his previous residence where he had continued to use drugs and effectively show a complete inability to manage his diabetes as he had acknowledged having not taken his diabetes medications for months. The patient appeared to show some difficulties with managing his blood sugars without any assistance. The patient's corporate development officer was informed that patient wished to go home and issued strong reservations that he would potentially put himself in danger of using and potentially harming himself with his lack of medical care for a significant chronic medical illness such as type 1 diabetes. He remained on a sliding scale dose at this time. He had minimized any urged to use methamphetamine despite stating that he may not return to the inpatient substance abuse treatment center that has been set up for him to stay there in 4 days. He continued to require prompting for completion of activities of daily living. Mental Status Exam 2 MSE Comments: The patient is a disheveled male with poor hygiene and steady gait who appeared in mild to moderate distress during the interview. There is no evidence of any abnormal involuntary motor movements, tics, or tremors appreciated. His speech was slow but steady with normal prosody and volume. His gait was steady. His mood was described as better. His affect was restricted in range and mood congruent. His thought process was linear, logical, and goal-directed. His thought content revealed suicidal ideation with no active plan. There was no clear evidence of delusional thinking. He did not appear to be responding to internal stimuli. He was alert and oriented to person, place, time, and situation. His recent and remote memory appeared grossly intact. His insight is poor. His judgment is limited. His impulse control appeared limited. Vitals/I&O/Wt Last Vital Signs Temp 98.0 F 08/21/25 12:45 Pulse 126 H 08/21/25 12:45 Resp 18 08/21/25 12:45 BP 108/72 08/21/25 12:45 Pulse Ox 100 08/21/25 12:45 O2 Del Method Room Air 08/21/25 12:45 Data NPU 08/17/25 13:30 08/17/25 13:30 A&P Assessment and plan 1. Suicidal ideation: 2. MDD (major depressive disorder), recurrent severe, without psychosis: 3. Anxiety disorder, unspecified: 4. Methamphetamine use disorder, severe: Plan: 29-year-old male with a history of depression and anxiety along with a history of polysubstance abuse currently endorsing suicidal ideation and increased stress regarding potential incarceration if he does not enter into a substance abuse treatment program. The patient has been seriously negligent in regards to self-care particularly with his management of his type 1 diabetes. #1.? Engage patient in individual milieu and group therapy. #2?? Recommend sober living treatment at the highest level of care to which the patient is willing to commit #3??? Appreciate Medical consultation regarding management of diabetes type I, patient on sliding scale. ? #4?? TO-15 minute checks? #5?? 21 day hold filed as this appeals writer has strong concerns about patient returning to his place of residence today. Patient informed that he could speak to the resource manager forester regarding the continued hold at hearing on Sunday. Patient accepted to [facility] on 08/24/25. #6. Continue Prozac at 30mg daily. PDMP PDMP Reviewed: Not Reviewed Involuntary Hold Information 2 Hold Status: Legal Status: 96 Hour Hold Date/Time Hold Expires: 08/21/25 @ 13:22 Attestations NPU 2 Medical Necessity Statement*: Inpatient hospitalization is medically necessary and deemed to be the clinically appropriate intervention at this time. Medications will be initiated and adjusted accordingly.? The patient?s likely length of stay is 3-5 days.? Coding Level of Care Code Acute Code for Chg Fwd Diagnoses Suicidal ideation R45.851 MDD (major depressive disorder), recurrent severe, without psychosis F33.2 Anxiety disorder, unspecified F41.9 Methamphetamine use disorder, severe F15.20
[2025-08-21 20:16] VITALS: BP 112/73; PULSE 105; RESP 18; TEMP 36.9; O2SAT 100
[2025-08-22 06:00] VITALS: RESP 16
--- NOTE | 2025-08-22 06:38 | PC.NURSE ---
vs not collected pt sleeping soundly, nurse notified, resp 16
--- NOTE | 2025-08-22 11:33 | P.NPUPN_ITS ---
Subjective NPU 2 Subjective: 29-year-old male admitted with depressio n and suicidal ideation with type 1 diabetes currently actively using methamphetamine, and whippets as well. The patient reported that he was feeling better. He had reported that he had felt that he may have problems with both ADHD and autism and wanted further information regarding this matter. He had reported that he would be ready to go to rehab on Sunday. He had reported no suicidal thoughts. He had been less isolative on the milieu and appeared to be caring for himself better here. The patient reported no suicidal thoughts at this time. Mental Status Exam 2 MSE Comments: The patient is a casually dressed male with poor but improving hygiene and steady gait who appeared in mild distress during the interview. There is no evidence of any abnormal involuntary motor movements, tics, or tremors appreciated. His speech was slow but steady with normal prosody and volume. His gait was steady. His mood was described as better. His affect was restricted in range and mood congruent. His thought process was linear, logical, and goal-directed. His thought content revealed suicidal ideation with no active plan. There was no clear evidence of delusional thinking. He did not appear to be responding to internal stimuli. He was alert and oriented to person, place, time, and situation. His recent and remote memory appeared grossly intact. His insight is improving His judgment is limited. His impulse control appeared limited. Vitals/I&O/Wt Last Vital Signs Temp 98.4 F 08/21/25 20:16 Pulse 105 H 08/21/25 20:16 Resp 16 08/22/25 06:00 BP 112/73 08/21/25 20:16 Pulse Ox 100 08/21/25 20:16 O2 Del Method Room Air 08/21/25 20:16 Data NPU 08/17/25 13:30 08/17/25 13:30 A&P Assessment and plan 1. Suicidal ideation: 2. MDD (major depressive disorder), recurrent severe, without psychosis: 3. Anxiety disorder, unspecified: 4. Methamphetamine use disorder, severe: Plan: 29-year-old male with a history of depression and anxiety along with a history of polysubstance abuse currently endorsing suicidal ideation and increased stress regarding potential incarceration if he does not enter into a substance abuse treatment program. The patient has been seriously negligent in regards to self-care particularly with his management of his type 1 diabetes. #1.? Engage patient in individual milieu and group therapy. #2?? Recommend sober living treatment at the highest level of care to which the patient is willing to commit #3??? Appreciate Medical consultation regarding management of diabetes type I, patient on sliding scale. ? #4?? TO-15 minute checks? #5?? 21 day hold filed as this account underwriter has strong concerns about patient returning to his place of residence today. Patient informed that he could speak to the florist regarding the continued hold at hearing on Sunday. Patient accepted to [facility] on 08/24/25. #6. Increase prozac to 40mg daily. PDMP PDMP Reviewed: Not Reviewed Involuntary Hold Information 2 Hold Status: Legal Status: 96 Hour Hold Date/Time Hold Expires: 08/21/25 @ 13:22 Attestations NPU 2 Medical Necessity Statement*: Inpatient hospitalization is medically necessary and deemed to be the clinically appropriate intervention at this time. Medications will be initiated and adjusted accordingly.? The patient?s likely length of stay is 2-3 days.? Coding Level of Care Code Acute Code for Chg Fwd Diagnoses Suicidal ideation R45.851 MDD (major depressive disorder), recurrent severe, without psychosis F33.2 Anxiety disorder, unspecified F41.9 Methamphetamine use disorder, severe F15.20
[2025-08-22 13:17] VITALS: BP 113/66; PULSE 105; RESP 18; TEMP 36.8; O2SAT 99
--- NOTE | 2025-08-22 18:16 | PM.MISC ---
Miscellaneous Note Purpose of Documentation: Follow-up for hyperglycemia and further discharge recommendation for diabetes type 1 Note: - Patient had frequent low normal blood glucose levels while inpatient keeping him on his home medication regimen for diabetes type 1 and also while reducing the dose his blood glucose was in the low normal send -Patient was kept on insulin sliding scale and his glucose levels were in acceptable range and also sometimes gets high. - HbA1c uncontrolled around 10 to 11% - Patient can be discharged on baseline home insulin regimen since his HbA1c has been uncontrolled, and he will be outside hospital without any diet control and at risk of further worsening of sugar levels. - Patient needs adequate emphasis and counseling for diabetes medication compliance, glucose monitoring and adequate insulin dose adjustment accordingly. -Patient needs counseling regarding dietary management of diabetes and importance of following with slice cutting machine operator. -Patient needs follow-up with the slice cutting machine operator within 1 week to establish care and manage his diabetes and related complications. - Medical team signed off, in any case of further questions or concerns do not hesitate to contact -Thank you for involving in the care of of this gentleman
[2025-08-22 20:20] VITALS: BP 127/79; PULSE 101; RESP 18; TEMP 37.1; O2SAT 99
[2025-08-23 06:00] VITALS: RESP 16
--- NOTE | 2025-08-23 06:32 | PC.NURSE ---
vs not colledted, pt sleeping soundly, Nurse notified resp 16
--- NOTE | 2025-08-23 06:34 | PC.NURSE ---
height and weight not done pt sleeping soundly, nurse notified
--- NOTE | 2025-08-23 13:56 | W.PM.NPUPNS ---
Subjective NPU Subjective: 29-year-old male admitted with depression and suicidal ideation with type 1 diabetes currently actively using methamphetamine, and whippets as well. The patient had reported that he was feeling better. He had reported no cravings for methamphetamine at this time. The patient had reported that he continued to feel optimistic about his ability to remain sober. He had reported chronic problems with engaging with peers and reported having struggles with sustaining attention. He had reported having struggles with falling asleep without the trazodone and requested taking something routinely at night for sleep. He reported no side effects from his medications. Mental Status Exam MSE Comments: The patient is a casually dressed male with improving hygiene and steady gait who appeared in mild distress during the interview. There is no evidence of any abnormal involuntary motor movements, tics, or tremors appreciated. His speech was slow but steady with normal prosody and volume. His gait was steady. His mood was described as better. His affect was flat. His thought process was linear, logical, and goal-directed. His thought content revealed suicidal ideation with no active plan. There was no clear evidence of delusional thinking. He did not appear to be responding to internal stimuli. He was alert and oriented to person, place, time, and situation. His recent and remote memory appeared grossly intact. His insight is improving His judgment is limited. His impulse control appeared to be improving. Vitals/I&O/Wt Last Vital Signs Temp 98.8 F 08/22/25 20:20 Pulse 101 H 08/22/25 20:20 Resp 16 08/23/25 06:00 BP 127/79 08/22/25 20:20 Pulse Ox 99 08/22/25 20:20 O2 Del Method Room Air 08/22/25 20:20 Data NPU 08/17/25 13:30 08/17/25 13:30 A&P Assessment and plan 1. Suicidal ideation: 2. MDD (major depressive disorder), recurrent severe, without psychosis: 3. Anxiety disorder, unspecified: 4. Methamphetamine use disorder, severe: Plan: 29-year-old male with a history of depression and anxiety along with a history of polysubstance abuse currently endorsing suicidal ideation and increased stress regarding potential incarceration if he does not enter into a substance abuse treatment program. The patient has been seriously negligent in regards to self-care particularly with his management of his type 1 diabetes. #1.? Engage patient in individual milieu and group therapy. #2?? Recommend sober living treatment at the highest level of care to which the patient is willing to commit #3??? Appreciate Medical consultation regarding management of diabetes type I, patient on sliding scale. ? #4?? TO-15 minute checks? #5?? 21 day hold filed as this magnetic tape typewriter operator has strong concerns about patient returning to his place of residence today. Patient informed that he could speak to the supervisor bit and shank department regarding the continued hold at hearing on Sunday. Patient accepted to [facility] on 08/24/25. #6. Continue prozac to 40mg daily. #7. RAADS completed, scored 141, within normal range and high predictive value for ASD. Would recommend outpatient evaluation to help with clarification of the issue. PDMP PDMP Reviewed: Not Reviewed Involuntary Hold Information Hold Status: Legal Status: 96 Hour Hold Date/Time Hold Expires: 08/21/25 @ 13:22 Attestations NPU Medical Necessity Statement*: Inpatient hospitalization is medically necessary and deemed to be the clinically appropriate intervention at this time. Medications will be initiated and adjusted accordingly.? The patient?s likely length of stay is 1-2 days.? Coding Level of Care Code Acute Code for Chg Fwd Diagnoses Suicidal ideation R45.851 MDD (major depressive disorder), recurrent severe, without psychosis F33.2 Anxiety disorder, unspecified F41.9 Methamphetamine use disorder, severe F15.20
[2025-08-23 14:00] VITALS: BP 91/48; PULSE 120; RESP 16; TEMP 37.3; O2SAT 98
[2025-08-23 21:46] VITALS: BP 106/70; PULSE 105; RESP 18; TEMP 37; O2SAT 98
[2025-08-24 06:00] VITALS: RESP 16
--- NOTE | 2025-08-24 06:35 | PC.NURSE ---
vs not completed pt sleeping soundly, resp 16 nurse notified
--- NOTE | 2025-08-24 08:39 | PC.NURSE ---
30 day supply of medications called into [facility] for pt. this am.
[2025-08-24 08:49] VITALS: BP 106/70; PULSE 105; RESP 16; TEMP 37; O2SAT 98
--- NOTE | 2025-08-24 09:07 | PC.NURSE ---
[facility] d/t they do not believe they received the blood sugar records.
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
== END 2025-08-24 09:06 | disposition home or self-care (01) | DRG 751 ==
LOC: ER 14:45 → NP 15:31
PROVIDERS: Admitting Provider Psychiatry & Neurology Psychiatry; Emergency Provider Emergency Medicine; Visit Provider Psychiatry & Neurology Psychiatry
DX: F33.2 Major depressive disorder, recurrent severe without psychotic features (principal); R45.851 Suicidal ideations; F41.9 Anxiety disorder, unspecified; F15.20 Other stimulant dependence, uncomplicated; E10.649 Type 1 diabetes mellitus with hypoglycemia without coma; Z79.4 Long term (current) use of insulin; T50.916A Underdosing of multiple unspecified drugs, medicaments and biological substances, initial encounter; Z91.148 Patient's other noncompliance with medication regimen for other reason; Y92.9 Unspecified place or not applicable; Z62.810 Personal history of physical and sexual abuse in childhood; F17.290 Nicotine dependence, other tobacco product, uncomplicated
CPT/HCPCS: 36415; 36416; 36600; 80053; 80306; 80307; 82803; 82962; 83036; 85025; 96361; 96372; 96374; 97150; 97165; 99285; J1815; J7030; J9999; Q0162